=== PATIENT | male | born 1975 | race Caucasian/White ===

== ENCOUNTER 2017-03-25 06:36 | Emergency (ER) | payer SELFPAY ==
[~2017-03-25] VITALS: Ht 182.9 cm; Wt 81.8 kg
[2017-03-25 10:25] VITALS: BP 126/82
== END 2017-03-25 10:25 | disposition home or self-care (01) ==
LOC: ED 06:36
DX: S06.0X9A Concussion with loss of consciousness of unspecified duration, initial encounter (principal); S01.01XA Laceration without foreign body of scalp, initial encounter; S00.01XA Abrasion of scalp, initial encounter; V29.9XXA Motorcycle rider (driver) (passenger) injured in unspecified traffic accident, initial encounter; Y92.414 Local residential or business street as the place of occurrence of the external cause
CPT/HCPCS: 90715; A4550